=== PATIENT | female | born 1980 | race Caucasian/White ===

== ENCOUNTER 2018-08-23 01:43 | Emergency (ER) | payer BC ==
[~2018-08-23] VITALS: Ht 165.1 cm; Wt 52.2 kg
[2018-08-23 01:45] VITALS: BP_SYST 117
--- NOTE | 2018-08-23 01:50 | NUR ---
Patient to ER bed 1 to gown for evaluation. Side rails up. Report given to NICOLETTE VARGHESE.
--- NOTE | 2018-08-23 02:02 | NUR ---
ER at bedside examining patient.
--- NOTE | 2018-08-23 02:05 | NUR ---
Pt arrived at ER by family/friend, C/O acute right Ankle pain. Pt stated fell asleep on sofa at home. Once awaken, got up quickly, while putting weight on right ankle, then heard a pop sound, followed by 7/10 sharp pain to the right ankle. No other complaints and injuries oberved or noted by pt. Resting comfortable on gurney with rails up. V/S stable no s/s of acute distress
[2018-08-23] MEDS ORDERED: IBUPROFEN 600 MG TABLET PO ONE (02:15)
--- NOTE | 2018-08-23 03:00 | NUR ---
Wrapped patient's right ankle with LUCIO wrap, per Dr. Belle. Placed patient's right foot in cast shoe. Capillary refill is <3 seconds, skin is intact, palpable pulse prior and post LUCIO wrap and cast shoe placement. Pt tolerated well.
--- NOTE | 2018-08-23 03:10 | NUR ---
Patient given written and verbal discharge instructions and verbalizes understanding. ER MD discussed with patient the results and treatment provided. Patient in stable condition. ID arm band removed. Rx of Naprosyn given. Patient educated on pain management and to follow up with PMD. Pain Scale 0. Opportunity for questions provided and answered. Medication side effect fact sheet provided.
[2018-08-23 04:12] VITALS: BP_SYST 99
== END 2018-08-23 03:10 | disposition home or self-care (01) ==
LOC: SED 01:43
DX: S82.831A Other fracture of upper and lower end of right fibula, initial encounter for closed fracture (principal); W19.XXXA Unspecified fall, initial encounter; Y93.89 Activity, other specified; Y92.89 Other specified places as the place of occurrence of the external cause; Y99.8 Other external cause status
CPT/HCPCS: 99283

== ENCOUNTER 2022-10-02 01:25 | Emergency (ER) | payer BC ==
[~2022-10-02] VITALS: Ht 165.1 cm; Wt 59.0 kg
[2022-10-02 01:30] VITALS: BP_SYST 107
--- NOTE | 2022-10-02 01:30 | NUR ---
Patient triaged and placed in waiting room. VSS and patient appears in no acute distress at this time. Patient accompanied by self, awaiting room in ED, ER MD Patel notified of patient's need of MSE.
--- NOTE | 2022-10-02 01:32 | NUR ---
Patient presents to ED from home with sob [id number] when lying down. Patient reports post nasal drip and productive cough x1.5 weeks. Patient reports pain 0/10 at this time. Patient A/Ox4, VSS, ambulatory, resp even and unlabored. Nad noted at this time. ER MD Patel made aware.
--- NOTE | 2022-10-02 01:50 | NUR ---
ER MD Patel examining patient in triage exam room.
--- NOTE | 2022-10-02 02:15 | NUR ---
Patient sitting upright in waiting room chair with safety precautions in place. Nad noted at this time.
[2022-10-02 03:43] VITALS: BP_SYST 107
--- NOTE | 2022-10-02 03:43 | NUR ---
Patient given written and verbal discharge instructions and verbalizes understanding. ER MD discussed with patient the results and treatment provided. Patient in stable condition. ID arm band removed. Patient educated on pain management and to follow up with PMD. Pain Scale 0/0. Opportunity for questions provided and answered. Patient in stable condition upon discharge.
== END 2022-10-02 03:43 | disposition home or self-care (01) ==
LOC: SED 01:25
DX: R09.82 Postnasal drip (principal); R06.02 Shortness of breath; R05.9 Cough, unspecified; J02.9 Acute pharyngitis, unspecified; J45.909 Unspecified asthma, uncomplicated; Z79.899 Other long term (current) drug therapy
CPT/HCPCS: 99281